=== PATIENT | female | born 1955 | race Caucasian/White ===

== ENCOUNTER 2019-06-07 11:19 | Observation (INO) | payer BC ==
[~2019-06-07] VITALS: Ht 172.7 cm; Wt 86.5 kg
[~2019-06-07 11:19] MED LIST: AMLO-150 PO; AZEL137S4 NAS; CHOL40002 PO; DIGE1TAB PO; ESTR10TA4 PO; MONT10TA11 PO; MULT1TAB60 PO; OMEP20TA62 PO; TAMO20TA PO; VITA1CAP PO
[2019-06-07] MEDS ORDERED: LACTATED RINGERS 1,000 ML IV SCH ×2 (12:02→15:47)
[2019-06-07 12:09] VITALS: BP 138/88
[2019-06-07] MEDS ORDERED: LIDOCAINE-MPF 1%, 2ML INFIL ONE (12:30)
[2019-06-07] MEDS ORDERED: MIDAZOLAM 1 MG/ML, 2ML ONE (13:28)
[2019-06-07] MEDS ORDERED: FENTANYL PF 250 MCG/5ML ONE (13:29)
[2019-06-07] MEDS ORDERED: BUPIVACAINE/PF-EPI 0.5% 1:200K ONE (14:51)
[2019-06-07] MEDS ORDERED: CEFAZOLIN 1,000 MG ONE (15:21)
[2019-06-07] MEDS ORDERED: SUCCINYLCHOLINE 20 MG/ML, 10ML ONE (15:21)
[2019-06-07] MEDS ORDERED: ONDANSETRON 2MG/ML, 2ML ONE (15:21)
[2019-06-07] MEDS ORDERED: DEXAMETHASONE 4 MG/ML, 1ML ONE (15:21)
[2019-06-07] MEDS ORDERED: NEOSTIGMINE 1 MG/ML, 10ML ONE (15:21)
[2019-06-07] MEDS ORDERED: GLYCOPYRROLATE 0.2MG/1ML, 5ML ONE (15:21)
[2019-06-07] MEDS ORDERED: ROCURONIUM 10MG/ML,5ML ONE (15:21)
[2019-06-07] MEDS ORDERED: PROPOFOL 10 MG/ML, 20ML ONE (15:21)
[2019-06-07] MEDS ORDERED: SUGAMMADEX 200 MG/2 ML IVPush ONE (15:22)
[2019-06-07] MEDS ORDERED: EPHEDRINE 50 MG/ML, 1ML ONE (15:27)
[2019-06-07] MEDS: FENTANYL PF 100 MCG/2ML IV PRN ×2 (15:40→16:00)
[2019-06-07] MEDS ORDERED: FENTANYL PF 100 MCG/2ML ONE (15:42)
[2019-06-07] MEDS ORDERED: OXYcodone 5 MG/5 ML ORAL.SOL UDC ONE (15:42)
[2019-06-07] MEDS ORDERED: morphine SULFATE 10 MG/ML, 1ML IVPush PRN (16:00)
[2019-06-07] MEDS ORDERED: PROMETHAZINE 25 MG SUPP PR PRN (16:00)
[2019-06-07] MEDS ORDERED: OXYcodone 5 MG/5 ML ORAL.SOL UDC PO PRN (16:00)
[2019-06-07] MEDS ORDERED: ACETAMINOPHEN 325 MG TABLET PO PRN (16:00)
[2019-06-07] MEDS ORDERED: HYDROmorphone 2 MG/ML, 1ML IVPush PRN (16:00)
[2019-06-07] MEDS ORDERED: HYDROcodone/APAP 5/325 TABLET PO PRN (16:00)
[2019-06-07] MEDS ORDERED: LORazepam 2 MG/ML, 1ML IVPush PRN (16:00)
[2019-06-07] MEDS ORDERED: PROMETHAZINE 25 MG/ML, 1ML IV PRN (16:00)
[2019-06-07] MEDS ORDERED: ONDANSETRON 2MG/ML, 2ML IVPush PRN (16:00)
[2019-06-07] MEDS ORDERED: ONDANSETRON ODT 8 MG PO PRN (16:00)
[2019-06-07] MEDS ORDERED: ONDANSETRON 2MG/ML, 2ML IV PRN (16:00)
[2019-06-07] MEDS ORDERED: KETOROLAC 30 MG/1 ML IV PRN (16:00)
== END 2019-06-07 17:45 | disposition home or self-care (01) ==
LOC: OUT 11:19 → EDSTATUS 14:00 → ORIP 15:47
PROVIDERS: ADMIT Surgery Vascular Surgery; ATTEND Thoracic Surgery (Cardiothoracic Vascular Surgery)
DX: K80.10 Calculus of gallbladder with chronic cholecystitis without obstruction (principal); K21.9 Gastro-esophageal reflux disease without esophagitis; I10 Essential (primary) hypertension; Z79.899 Other long term (current) drug therapy; Z85.3 Personal history of malignant neoplasm of breast; Z88.0 Allergy status to penicillin
CPT/HCPCS: 47562; 88304; 93005; G0378; J0690; J1100; J2250; J2405; J2704; J3010; J3490; J7120; J2710; J0330